=== PATIENT | male | born 1970 | race Caucasian/White ===

== ENCOUNTER 2023-03-21 15:28 | Emergency (ER) | payer SELFPAY ==
[2023-03-21 15:59] VITALS: BP 126/81; PULSE 68; RESP 16; TEMP 98.5; BMI 31.7
== END 2023-03-21 19:22 | disposition home or self-care (01) ==
LOC: JERFT 15:28
DX: R51.9 Headache, unspecified (principal); I10 Essential (primary) hypertension
CPT/HCPCS: 99282-25